=== PATIENT | female | born 1935 ===

== ENCOUNTER 2025-02-10 09:47 | Emergency (ER) | payer MEDICARE, MEDICAID, SELFPAY ==
--- OUTSIDE RECORDS SUMMARY | 2025-01-27 05:15 | XMS_ITS ---
Author Organization [facility] Address [address] [place] [address] Care Team Providers Care Orbitread Operator Name Role Phone NO, PCP Primary Care Provider Ngoc Cervantes Unavailable [phone] REASON FOR VISIT Apply for senior Insurance Social History Sex Assigned At : Social History Observation Description Sex Assigned At Female Encounters Encounter Location Date Provider Diagnosis [facility] [address] [place] [id number] 01/27/2025 Ngoc Cervantes Plan Of Treatment No Information Progress Notes * Denice ARIASDOB:1935 ( 89 yo F)Acc No.[id number]:01/27/2025 Case Management New Patient: Denice POLK Provider: Izabela Cervantes :1935 A ge:89 Y S ex:Female Date:01/27/2025 Address:[address] [place], [place] [id number] Pcp:PCP NO Subjective: * Chief Complaints: * 1 . Apply for senior Insurance. Objective: Assessment: Plan: * Treatment: * Images: Billing Information: * Visit Code: * Procedure Codes: Care Plan Details* * Electronic signature of Mohit Olsen on 02/10/2025 at 12:11 PM EDT Sign off status: Pending * Provider: Izaebla Cervantes Date: 0 01/27/2025 Generated for Chary vega/Brian/Rekha on: 12:11 PM EDT
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
[2025-02-10 09:56] VITALS: BP 156/59; PULSE 63; RESP 18; TEMP 36.4; O2SAT 96; BMI 23.5
--- NOTE | 2025-02-10 10:00 | ECG_ITS ---
Test Reason : CHEST PAIN Blood Pressure : */* mmHG Vent. Rate : 60 BPM Atrial Rate : 60 BPM P-R Int : 176 ms QRS Dur : 74 ms QT Int : 412 ms P-R-T Axes : 35 28 16 degrees QTcB Int : 412 ms Normal sinus rhythm Normal ECG No previous ECGs available Referred By: Generic ED Physician Electronically Signed By: CHAI WEBER
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
[2025-02-10 10:26] VITALS: BP 147/64; PULSE 62; RESP 18; TEMP 36.7; O2SAT 97
[2025-02-10 11:08] LABS: MANUAL DIFF FLAG NO
[2025-02-10 11:13] LABS: Hematocrit 35.7 % (37.0-47.0); Hemoglobin 11.5 g/dl (12.0-16.0); Imm Gran Abs Auto 0.01 X10*3/uL (0.00-0.03); Imm Gran Pct Auto 0.2 % (0.0-0.4); Lymphocytes Absolute Auto 1.7 X10*3/uL (1.2-4.9); Mean Corpuscular HGB Conc 32.2 g/dl (31.0-35.0); Mean Corpuscular Hemoglobin 28.8 pg (27.0-33.0); Mean Corpuscular Volume 89.5 fL (80.0-98.0); NRBC Abs Auto 0.000 X10*3/uL (0.0-0.012); NRBC Pct Auto 0.0 /100WBC (0.0-0.2); Platelet Count 199 X10*3/uL (160-400); Red Blood Count 3.99 X10*6/uL (4.20-5.50); White Blood Count 5.9 X10*3/uL (4.8-10.8)
[2025-02-10 11:17] LABS: INTERNATIONAL NORM RATIO 1.0 (0.9-1.1); Prothrombin Time 11.4 SEC (10.9-12.4)
[2025-02-10 11:24] LABS: Alanine Aminotransferase 9 U/L (0-31); Albumin Level 3.9 g/dL (3.5-5.0); Alkaline Phosphatase 78 U/L (39-117); Anion Gap 8 (12-20); Aspartate Amino Transferase 18 U/L (5-31); Blood Urea Nitrogen 13 mg/dL (9-16); Calcium 9.4 mg/dL (8.4-10.2); Carbon Dioxide 29 mmol/L (22-29); Chloride 112 mmol/L (96-108); Creatinine Clr Calc Pharmacy 35.8; Estimated Glomerular Filt Rate > 60; Potassium 4.0 mmol/L (3.3-5.1); Sodium 145 mmol/L (135-145); Total Protein 6.5 g/dL (6.5-8.0)
[2025-02-10 11:51] LABS: Troponin-I High Sensitivity < 2.7 ng/L (<3.5-17.0)
--- OUTSIDE RECORDS SUMMARY | 2025-02-10 12:12 | XMS_ITS | Patient Health Record ---
Author Organization [facility] Address [address] [place] [address] Care Team Providers Care Ammonia Box Tender Name Role Phone NO, PCP Primary Care Provider [phone] Ngoc Cervantes Unavailable [phone] Reason For Referral No Information Social History Sex Assigned At : Social History Observation Description Sex Assigned At Female Encounters Encounter Location Date Provider Diagnosis [facility] [address] [place] [address] 01/27/2025 Ngoc Cervantes Plan Of Treatment No Information Insurance Providers Payer Name Payer Address Payer Phone Subscriber Number Group Number Insured Name Patient Relationship to Insured Coverage Start Date Coverage End Date [place] Medicare Part A [employer] [address] [place] [address] [id number] Denice Wadsworth Self - patient is the insured 1 Insurance Pending [address] [place] [address] 0 Denice Wadsworth Self - patient is the insured 5
[2025-02-10 12:40] VITALS: BP 141/59; PULSE 57; RESP 16; TEMP 36.6; O2SAT 98
[2025-02-10 13:56] VITALS: BP 141/59; PULSE 57; RESP 16; TEMP 36.6; O2SAT 98
== END 2025-02-10 14:10 | disposition home or self-care (01) ==
PROVIDERS: Physician Assistant Medical; Emergency Provider Emergency Medicine
DX: R07.89 Other chest pain (principal)
CPT/HCPCS: 36415; 71250; 80053; 84484; 85025; 85610; 93005; 99284; 99285

== ENCOUNTER → 2025-02-10 10:00 | Outpatient (BNV) | payer MEDICARE, MEDICAID, SELFPAY | PROVIDERS: Emergency Provider Emergency Medicine; Visit Provider Internal Medicine | DX: R07.2 Precordial pain (principal) | CPT/HCPCS: 93010 ==

== ENCOUNTER → 2025-02-10 10:14 | Outpatient (BNV) | payer MEDICARE, MEDICAID, SELFPAY | PROVIDERS: Visit Provider Radiology Diagnostic Radiology | DX: R07.89 Other chest pain (principal); Y04.2XXA Assault by strike against or bumped into by another person, initial encounter | CPT/HCPCS: 71250 ==

== ENCOUNTER 2025-03-10 07:43 | Emergency (ER) | payer MEDICARE, MEDICAID, SELFPAY ==
--- NOTE | ~2025-03-10 | XR_ITS ---
EXAMINATION: XR ABDOMEN KUB CLINICAL INDICATION: ?constipation COMPARISON: None available. TECHNIQUE: AP view of the abdomen. FINDINGS: Constipation. No dilated loops of bowel to suggest obstruction. No free air. Surgical clips in the right upper quadrant probably from cholecystectomy. Clustered round foreign bodies with lucent center project over the central pelvis, question related to prior surgery or hernia repair with mesh. Degenerative changes of the spine and hips. XR/XR KUB IMPRESSION: Mild constipation. No evidence of obstruction. Electronically signed by: Patricia Priest MD 03/10/2025 09:34 AM EDT
--- NOTE | ~2025-03-10 | CT_ITS ---
EXAMINATION: CT ABDOMEN AND PELVIS WITH CONTRAST CLINICAL INFORMATION: RLQ pain COMPARISON: Radiograph of the abdomen on March 10, 2025 TECHNIQUE: Multidetector volumetric images were obtained from the superior aspect of the liver through the pubic symphysis following administration 85 cc of Omnipaque 350 intravenous contrast. Sagittal and coronal reformatted images were obtained on the technologist's workstation. Oral contrast: No This CT examination was performed using dose optimization techniques as appropriate, variously including the following: *Automated exposure control *Adjustment of mA and/or kV according to patient size (this includes techniques or standardized protocols for targeted exams where dose is matched to indication/reason for exam; i.e. extremities or head) *Use of iterative reconstruction technique FINDINGS: LOWER CHEST: No focal consolidation. No pleural effusion. LIVER: No hepatomegaly. No focal lesions. GALLBLADDER AND BILIARY TREE: Status post cholecystectomy. Mild intrahepatic biliary ductal dilatation. Mildly prominent: bile duct measures up to 0.9 cm in caliber (6:32/74). PANCREAS: Unremarkable. SPLEEN: No splenomegaly. No focal lesions. ADRENAL GLANDS: No nodules. KIDNEYS AND URETERS: Exophytic 5.6 cm lesion in the lower pole of the right kidney measuring fluid density, compatible with a cyst (6:42/74). Small hypodense lesion in the upper pole of the left kidney, too small to be characterize, likely a cyst. No hydronephrosis on either side. GASTROINTESTINAL TRACT: No bowel distention. Numerous diverticula along the colonic loops, without associated inflammatory changes. Normal appendix identified in the right lower quadrant (3:63/91). PERITONEUM/RETROPERITONEUM: Trace free fluid in the pelvis. No free air. ABDOMINAL WALL: No significant hernia is appreciated. LYMPH NODES: No bulky lymphadenopathy. VASCULAR: No abdominal aortic aneurysm. Moderate atherosclerotic disease with calcifications. PELVIC VISCERA: Partially distended urinary bladder. Status post hysterectomy. OSSEOUS STRUCTURES: Multilevel degenerative changes throughout the spine. No acute findings. CT/CT abdomen pelvis w IV con IMPRESSION: 1. No acute findings in the abdomen/pelvis; in particular, no acute findings in the right lower quadrant. 2. Nonspecific trace free fluid in the pelvis. 3. Colonic diverticulosis. Electronically signed by: Leo Tanner MD 03/10/2025 12:50 PM EDT
[2025-03-10 07:55] VITALS: BP 181/84; PULSE 57; RESP 16; TEMP 36.4; O2SAT 99; BMI 22.8
[2025-03-10 08:25] LABS: MANUAL DIFF FLAG NO
--- OUTSIDE RECORDS SUMMARY | 2025-03-10 08:26 | XMS_ITS | Patient Health Record ---
Author Organization [facility] Address [address] [place] [address] Care Team Providers Care Wheel Inspector Name Role Phone NO, PCP Primary Care Provider Ngoc Cervantes Unavailable [phone] Reason For Referral No Information Social History Sex Assigned At : Social History Observation Description Sex Assigned At Female Encounters Encounter Location Date Provider Diagnosis [facility] [address] [place] [address] 01/27/2025 Ngoc Cervantes Plan Of Treatment No Information Insurance Providers Payer Name Payer Address Payer Phone Subscriber Number Group Number Insured Name Patient Relationship to Insured Coverage Start Date Coverage End Date ID Medicare Part A [employer] [address] [facility] [place] [address] [id number] Denice Wadsworth Self - patient is the insured 1 [place] Medicaid Standard [address] [place] [address] [id number] Denice Wadsworth Self - patient is the insured 5
[2025-03-10 08:28] LABS: Hematocrit 37.8 % (37.0-47.0); Hemoglobin 12.3 g/dl (12.0-16.0); Imm Gran Abs Auto 0.03 X10*3/uL (0.00-0.03); Imm Gran Pct Auto 0.5 % (0.0-0.4); Lymphocytes Absolute Auto 2.4 X10*3/uL (1.2-4.9); Mean Corpuscular HGB Conc 32.5 g/dl (31.0-35.0); Mean Corpuscular Hemoglobin 28.9 pg (27.0-33.0); Mean Corpuscular Volume 88.7 fL (80.0-98.0); NRBC Abs Auto 0.000 X10*3/uL (0.0-0.012); NRBC Pct Auto 0.0 /100WBC (0.0-0.2); Platelet Count 224 X10*3/uL (160-400); Red Blood Count 4.26 X10*6/uL (4.20-5.50); White Blood Count 5.8 X10*3/uL (4.8-10.8)
[2025-03-10 08:39] LABS: Anion Gap 11 (12-20); Blood Urea Nitrogen 13 mg/dL (9-16); Calcium 9.8 mg/dL (8.4-10.2); Carbon Dioxide 28 mmol/L (22-29); Chloride 108 mmol/L (96-108); Creatinine Clr Calc Pharmacy 35.3; Estimated Glomerular Filt Rate > 60; Potassium 3.8 mmol/L (3.3-5.1); Sodium 143 mmol/L (135-145)
--- NOTE | 2025-03-10 08:42 | ED.ABDPAIN ---
HPI - Abdominal Pain General Chief Complaint: Abdominal Pain Stated Complaint: abd issues constipation Time Seen by Provider: 03/10/25 08:28 Source: patient and family (son) Mode of arrival: ambulatory Limitations: no limitations History of Present Illness ED Provider: TAMARA HANKS PA-C HPI narrative: 89 year old female presents to the ED today with her son for evaluation of generalized abdominal pain x1 year, worsening over the last month. Associated nausea without vomiting. No urinary sx. Endorses constipation at baseline, typically managed with senna. Passing flatus. Last BM two days ago. Surgical history includes complicated complete hysterectomy requiring 4 additional operations. Her son is at bedside to assist with history. She recently moved to [place] from [place]. She has not established with a PCP. Reports increasing anxiety/life stressors since move. Related Data Previous Rx's ?Medication ?Instructions ?Recorded cefuroxime axetil 250 mg tablet 250 mg PO BID 7 days #14 tabs 03/10/25 Allergies Allergy/AdvReac Type Severity Reaction Status Date / Time No Known Allergies Allergy Verified 03/10/25 07:57 Review of Systems Review of Systems Yes all other systems are reviewed and are negative PMFSH Past Medical History Attestation statement: The following information was validated with the patient. Source: old records reviewed and nursing notes reviewed Physical Exam ED Vital Signs: Vital Signs - 24 hr 03/10/25 07:55 03/10/25 09:14 03/10/25 10:43 Temperature 97.6 F 97.7 F Pulse Rate 57 61 57 Respiratory Rate 16 16 18 Blood Pressure 181/84 H 166/65 H 191/74 H Pulse Oximetry 99 98 Oxygen Delivery Method Room Air Room Air 03/10/25 12:54 03/10/25 14:46 Temperature 97.7 F 97.7 F Pulse Rate 62 62 Respiratory Rate 14 14 Blood Pressure 170/77 H 170/77 H Pulse Oximetry 98 98 Oxygen Delivery Method Room Air Room Air BMI result Body Mass Index 22.8 hypertensive, vitals are otherwise wnl General: Well appearing, in no acute distress. Skin: Warm, dry, intact. No rashes or lesions. Head: Normocephalic, atraumatic. EENT: Hearing is intact b/l. Conjunctiva clear. Sclera is anicteric. PERRLA. EOM intact. Moist mucous membranes.? Cardiac: Chest wall symmetric. RRR Lungs: Normal respiratory effort without accessory muscle use. CTA bilaterally Abdomen: Soft, nondistended, mildly tender to suprapubic region without rebound or guarding. Positive BS x4. no cvat. Back: No midline spinous or paraspinal tenderness. No step off deformity. Ext: Upper and lower extremities atraumatic, without tenderness, deformity, swelling or erythema Neuro: AOx3. Normal speech. Ambulating with steady gait. Course Course Course Narrative: CBC without leukocytosis or left shift. No anemia. H&H stable. Chemistry without acute electrolyte abnormality requiring intervention. No EVELIN. Liver function WNL. CRP undetectable. Her urine is infected. Patient was given an IV dose of ceftriaxone in the ED, plan to discharge patient home with a course of Ceftin for treatment. Her KUB shows mild constipation without evidence of obstruction. CT abdomen/pelvis showing normal appendix. No acute findings. No evidence of bowel obstruction > patient anxious for discharge home. Ceftin sent to pharmacy. Patient has remained stable throughout ED visit today. Discussed worrisome signs and symptoms and when to return to the ED. All questions answered at this time. Patient is agreeable with disposition and stable for discharge. Medical Decision Making Medical Decision Making [facility] Narrative: 89 year old female presents to the ED today with her son for evaluation of generalized abdominal pain x1 year, worsening over the last month. Differential diagnoses: appendicitis, diverticulitis, diverticulosis, UTI, constipation Abdominal exam without peritoneal signs. No evidence of acute abdomen at this time. Well appearing. Low suspicion for acute hepatobiliary disease (including acute cholecystitis), acute infectious processes (pneumonia, hepatitis, pyelonephritis, PID, TOA), vascular catastrophe, bowel obstruction or viscus perforation, ovarian cyst/ rupture/ torsion, ectopic. Presentation not consistent with other acute, emergent causes of abdominal pain at this time. Plan: labs, UA, CT AP, re-eval. Differential Diagnosis Differential Diagnoses: The differential diagnosis associated with the presentation includes As above Admission/Observation Not indicated Lab Data [facility] Lab Attestation statement: I reviewed the patient's lab results. As above 03/10/25 08:14 03/10/25 08:14 Labs: Lab Results 03/10/25 03/10/25 Range/Units 08:14 10:46 WBC 5.8 (4.8-10.8) X10*3/uL RBC 4.26 (4.20-5.50) X10*6/uL Hgb 12.3 (12.0-16.0) g/dl Hct 37.8 (37.0-47.0) % MCV 88.7 (80.0-98.0) fL MCH 28.9 (27.0-33.0) pg MCHC 32.5 (31.0-35.0) g/dl RDW 13.9 (11.0-16.0) % Plt Count 224 (160-400) X10*3/uL MPV 11.1 (9.4-12.3) fL Immature Gran % (Auto) 0.5 H (0.0-0.4) % Neut % (Auto) 49.2 (45-73) % Lymph % (Auto) 40.8 H (20-40) % [place] % (Auto) 7.1 (2-11) % Eos % (Auto) 2.1 (0-4) % Baso % (Auto) 0.3 (0-2) % Lymph # (Auto) 2.4 (1.2-4.9) X10*3/uL [place] # (Auto) 0.4 (0.1-1.2) X10*3/uL Eos # (Auto) 0.1 (0.0-0.4) X10*3/uL Baso # (Auto) 0.0 (0.0-0.2) X10*3/uL Abs Immat Gran (auto) 0.03 (0.00-0.03) X10*3/uL Absolute Neuts (auto) 2.9 (2.0-8.3) x10*3/uL Absolute Nucleated RBC 0.000 (0.0-0.012) X10*3/uL Nucleated RBC % (auto) 0.0 (0.0-0.2) /100WBC Sodium 143 (135-145) mmol/L Potassium 3.8 (3.3-5.1) mmol/L Chloride 108 (96-108) mmol/L Carbon Dioxide 28 (22-29) mmol/L Anion Gap 11 L (12-20) BUN 13 (9-16) mg/dL Creatinine 0.79 (0.5-1.4) mg/dL Estim Creat Clear Calc 35.3 Estimated GFR > 60 Random Glucose 87 (60-115) mg/dL Calcium 9.8 (8.4-10.2) mg/dL Total Bilirubin 0.6 (0.0-1.0) mg/dL Direct Bilirubin 0.2 (0.0-0.5) mg/dL AST 24 (5-31) U/L ALT 11 (0-31) U/L Alkaline Phosphatase 95 (39-117) U/L C-Reactive Protein < 0.10 (< or = 0.50) mg/dL Total Protein 7.5 (6.5-8.0) g/dL Albumin 4.3 (3.5-5.0) g/dL Urine Color Yellow Urine Appearance Clear Urine pH 7.0 (5.0-9.0) Ur Specific [place] <= 1.005 (1.005-1.025) Urine Protein Negative (Neg-Trace) mg/dL Urine Glucose (UA) Negative (Negative) mg/dL Urine Ketones Negative (Negative) mg/dL Urine Blood Negative (Negative) Urine Nitrite Positive H (Negative) Ur Leukocyte Esterase Moderate (2+) H (Negative) Urine RBC 0-2 (0-2) /HPF Urine WBC 11-20 H (0-5) /HPF Ur Squamous Epith Cells 0-2 (0-2) /HPF Urine Bacteria 4+ (None Seen) Hyaline Casts 0-2 (0-2) /LPF Independent Interpretation I performed an independent interpretation of an: Plain X-Ray and CT Scan Interpretation: KUB without bowel obstruction CT a/p without bowel obstruction Radiology Impression Discussion of test interpretation with radiology: I have reviewed the radiologist's reading. Radiologist Impression: Procedure(s): CT abdomen pelvis w IV con Accession Number(s): [id number] cc: Physician,Unknown ; Tamara Hanks~ Report Number: [id number]: Total DLP = 402.00 mGy-cm Reason for Exam: RLQ pain EXAMINATION: CT ABDOMEN AND PELVIS WITH CONTRAST CLINICAL INFORMATION: RLQ pain COMPARISON: Radiograph of the abdomen on March 10, 2025 TECHNIQUE: Multidetector volumetric images were obtained from the superior aspect of the liver through the pubic symphysis following administration 85 cc of Omnipaque 350 intravenous contrast. Sagittal and coronal reformatted images were obtained on the technologist's workstation. Oral contrast: No This CT examination was performed using dose optimization techniques as appropriate, variously including the following: *Automated exposure control *Adjustment of mA and/or kV according to patient size (this includes techniques or standardized protocols for targeted exams where dose is matched to indication/reason for exam; i.e. extremities or head) *Use of iterative reconstruction technique FINDINGS: LOWER CHEST: No focal consolidation. No pleural effusion. LIVER: No hepatomegaly. No focal lesions. GALLBLADDER AND BILIARY TREE: Status post cholecystectomy. Mild intrahepatic biliary ductal dilatation. Mildly prominent: bile duct measures up to 0.9 cm in caliber (6:32/74). PANCREAS: Unremarkable. SPLEEN: No splenomegaly. No focal lesions. ADRENAL GLANDS: No nodules. KIDNEYS AND URETERS: Exophytic 5.6 cm lesion in the lower pole of the right kidney measuring fluid density, compatible with a cyst (6:42/74). Small hypodense lesion in the upper pole of the left kidney, too small to be characterize, likely a cyst. No hydronephrosis on either side. GASTROINTESTINAL TRACT: No bowel distention. Numerous diverticula along the colonic loops, without associated inflammatory changes. Normal appendix identified in the right lower quadrant (3:63/91). PERITONEUM/RETROPERITONEUM: Trace free fluid in the pelvis. No free air. ABDOMINAL WALL: No significant hernia is appreciated. LYMPH NODES: No bulky lymphadenopathy. VASCULAR: No abdominal aortic aneurysm. Moderate atherosclerotic disease with calcifications. PELVIC VISCERA: Partially distended urinary bladder. Status post hysterectomy. OSSEOUS STRUCTURES: Multilevel degenerative changes throughout the spine. No acute findings. CT/CT abdomen pelvis w IV con IMPRESSION: 1. No acute findings in the abdomen/pelvis; in particular, no acute findings in the right lower quadrant. 2. Nonspecific trace free fluid in the pelvis. 3. Colonic diverticulosis. Electronically signed by: Leo Tanner MD 03/10/2025 12:50 PM EDT Procedure(s): XR KUB Accession Number(s): [id number] cc: Physician,Unknown ; Tamara Hanks~ Reason for Exam: ?constipation EXAMINATION: XR ABDOMEN KUB CLINICAL INDICATION: ?constipation COMPARISON: None available. TECHNIQUE: AP view of the abdomen. FINDINGS: Constipation. No dilated loops of bowel to suggest obstruction. No free air. Surgical clips in the right upper quadrant probably from cholecystectomy. Clustered round foreign bodies with lucent center project over the central pelvis, question related to prior surgery or hernia repair with mesh. Degenerative changes of the spine and hips. XR/XR KUB IMPRESSION: Mild constipation. No evidence of obstruction. Electronically signed by: Patricia Priest MD 03/10/2025 09:34 AM EDT RP Independent Historian Clinical information obtained from an independent historian. History obtained from or confirmed by: Other (son) Prescription Management I considered prescription management with: Antibiotic (ceftin) and Other (MiraLax, Colace) Social Determinants Patient?s care significantly limited by Social Determinants of Health including: Other Social Determinant of Health Medications Administered Discontinued Medications Generic Name Dose Route Start Last Admin Trade Name Freq PRN Reason Stop Dose Admin Acetaminophen 1,000 mg in 100 mls @ 400 mls/hr 03/10/25 10:48 03/10/25 12:54 Ofirmev IV 03/10/25 11:02 Infused ONCE ONE Infusion Ceftriaxone Sodium 1 gm/ 50 mls @ 100 mls/hr 03/10/25 11:27 03/10/25 12:54 Sodium Chloride IV 03/10/25 11:56 Infused ONCE ONE Infusion Iohexol 100 ml 03/10/25 12:12 03/10/25 12:13 Iohexol 350 Mg/Ml 100 Ml Infus..Btl IV 03/10/25 12:13 85 ml ONCE ONE Administration Critical Care Time Critical Care Time Critical Care Time: No Discharge Plan Discharge Clinical Impression: Acute UTI Patient Disposition: Home, Self-Care Instructions: Urinary Tract Infection in Older Adults (ED) Additional Instructions: Your urine today is positive for infection. Ceftin is an antibiotic that has been sent to your pharmacy. Take this as prescribed and do not miss any doses. You must complete the entire course of antibiotics. If you do not, there is a risk of the infection coming back or worsening.? Follow up with your primary care provider as needed. If you develop a fever or new/ worsening symptoms call 911 or come back to the ER for further evaluation. Prescriptions: New cefuroxime axetil 250 mg tablet 250 mg PO BID 7 Days Qty: 14 0RF Referrals: Physician,Unknown J [Primary Care Provider, Medical] Interventions: ED Discharge Assessment Last Done: 03/10/25 14:46 Discharge Date/Time: 03/10/25 14:47 Print Language: Luxembourgish
[2025-03-10 09:14] VITALS: BP 166/65; PULSE 61; RESP 16; TEMP 36.5
--- NOTE | 2025-03-10 09:16 | PC.NURSE ---
PAtient presents to ED c/o ABD pain rated 8/10 +bowel sounds, tender in RLQ Patient has been experiencing constipation, last movement yesterday. Patient reports diarrhea Patient awaiting xray and urine sample VSS and up to date Provider in to see patient plan of care on going
[2025-03-10 10:43] VITALS: BP 191/74; PULSE 57; RESP 18; O2SAT 98
[2025-03-10 11:05] LABS: Appearance Urine Clear; Glucose Urine UA Negative (Negative); PH 7.0 (5.0-9.0); Specific Gravity - Urine <= 1.005 (1.005-1.025); UMIC TRIGGER UACC YES
--- NOTE | 2025-03-10 11:06 | MHC.EDTECH ---
attempted to do labs for pt. Family state she had labs drawn done already. Lab was called to check if new orders can be added, trailer technician alexander stated there is enough to do an add on.
[2025-03-10 11:08] LABS: UACC Culture Trigger YES
[2025-03-10 11:20] LABS: Alanine Aminotransferase 11 U/L (0-31); Albumin Level 4.3 g/dL (3.5-5.0); Alkaline Phosphatase 95 U/L (39-117); Aspartate Amino Transferase 24 U/L (5-31); Total Protein 7.5 g/dL (6.5-8.0)
[2025-03-10] MEDS: iohexoL 350 MG/ML 100 ML INFUS..BTL IV (12:13)
[2025-03-10 12:54] VITALS: BP 170/77; PULSE 62; RESP 14; TEMP 36.5; O2SAT 98
[2025-03-10 14:46] VITALS: BP 170/77; PULSE 62; RESP 14; TEMP 36.5; O2SAT 98
== END 2025-03-10 14:47 | disposition home or self-care (01) ==
PROVIDERS: Emergency Provider Emergency Medicine
DX: N39.0 Urinary tract infection, site not specified (principal); R10.31 Right lower quadrant pain; K59.00 Constipation, unspecified; K57.30 Diverticulosis of large intestine without perforation or abscess without bleeding
CPT/HCPCS: 36415; 74018; 74177; 80048; 80076; 81001; 81003; 85025; 86140; 87086; 87088; 87186; 96365; 96375; 99285; J0131; J0696; Q9967

== ENCOUNTER → 2025-03-10 08:30 | Outpatient (BNV) | payer MEDICARE, MEDICAID, SELFPAY | PROVIDERS: Emergency Provider Emergency Medicine; Visit Provider Radiology Diagnostic Radiology | DX: R10.31 Right lower quadrant pain (principal); R11.0 Nausea | CPT/HCPCS: 74018; 74177 ==

== ENCOUNTER 2025-04-05 09:55 | Outpatient (AMB) | payer MEDICARE, MEDICAID, SELFPAY ==
--- NOTE | 2025-04-05 09:59 | A.OFFPC_ITS ---
Vital Signs 04/05/25 10:04 Weight 122 lb BP 130/76 Blood Pressure Location Lt brachial Position Sitting Pulse 59 Pulse Source Pulse Oximeter Temp 97.7 F Temp Source Temporal Artery Scan Pulse Oximetry (%) 98 Oxygen Delivery Method Room Air Intake Visit Reasons: establish care/chest pain Loss Prevention Analyst Required: Yes Loss Prevention Analyst Name: pt son Accompanied by: Son Allergies No Known Allergies Allergy (Verified 04/05/25 09:59) Medication List - Last Reconciled 04/05/25 by Damian Louise MD No Known Home Meds Tobacco use date assessed: 04/05/25 Fall risk assessment: 1 Fall in past year Last assessed Fall Risk: 04/05/25 Dental Screening Dental Screen Date: 04/05/25 Did you have a dental visit in the last 12 months?: Yes Did you have a dental problem in the last 6 months where you did not have access to dental care?: No HPI HPI Comments History of Present Illness Details The patient is a 89 year old F with PMH of OA, constipation, anxiety, acid reflux, dry mouth, difficulty swallowing who is presenting for a new patient visit to establish primary care, accompanied by the patient's son who serves as a plaster model and mold maker. The patient's primary concern is chronic constipation, being unable to have a bowel movement for 2-3 days at a time without using laxatives such as Senna leaf or milk of magnesia. Stools are described as small, hard, and round, and there is concern for fecal impaction. Enemas have provided some relief in the past. The patient also has a history of traveling abdominal discomfort, which is now less frequent and believed to be stress-related. The patient reports significant anxiety, which the son attributes to stress from family problems. The patient reports experiencing auditory hallucinations described as a chirping sound, which began after the of several family members and worsens with increased stress and anxiety. The patient has used the son's clonidine once without adverse reaction and also takes melatonin for sleep and CBD for anxiety. The patient reports extreme dry mouth, acid reflux, and a significant problem with swallowing food, which reportedly worsens with stress. The patient uses lemon and baking soda for reflux symptoms. Past medical history is significant for shingles, which has resulted in residual itching on the feet, legs, and back, for which the patient uses antihistamines as needed. The patient recently completed treatment with antibiotics for an ESBL E. coli urinary tract infection and has residual urinary discomfort, along with baseline urinary incontinence. The patient also has bilateral hand and bilateral knee pain, for which the patient uses topical CBD and THC, which are reported to be helpful. [facility] Family History (Updated 04/05/25 @ 10:11 by Renetta Petersen MA) Mother No problems noted. Father No problems noted. Social History Housing: House Patient Tobacco Use Status: Never used Tobacco e-Cigarette/Vaping Use: Never Used service: No Current occupational status: retired Cognitive needs: No Hearing needs: No Vision needs: Yes (rx glasses) Questionnaire PHQ-9 Over the last 2 weeks, how often have you been bothered by any of the following problems? 1. Little interest or pleasure in doing things: not at all 2. Feeling down, depressed, or hopeless: several days 3. Trouble falling or staying asleep, or sleeping too much: several days 4. Feeling tired or having little energy: several days 5. Poor appetite or overeating: several days 6. Feeling bad about yourself - or that you are a failure or have let yourself or your family down: several days 7. Trouble concentrating on things, such as reading the newspaper or watching television: several days 8. Moving or speaking so slowly that other people could have noticed. Or the opposite - being so fidgety or restless that you have been moving around a lot more than usual: not at all 9. Thoughts that you would be better off or of hurting yourself in some way: not at all Total score: 6 Source: Developed by Drs. Juvenal Mercado, Shauna Solorio, Terry Ortiz and colleagues, with an educational niki from [employer]. Thrive Questionnaire Date Thrive assessed: 04/05/25 I am a: Patient What is your living situation today?: I have a place to live, but I am worried about losing it in the future Within the past 12 months, did the food you bought not last and you didn't have the money to get more?: Sometimes True Within the past 12 months, did you worry whether your food would run out before you got money to buy more?: Sometimes True Do you have trouble paying for medicines?: Yes Do you have trouble getting transportation to medical appointments?: Yes Do you have trouble paying your heating and electricity bill?: Yes Do you have trouble taking care of your child, family member or friend?: I choose not to answer this question Do you have trouble with day-to-day activities such as bathing, preparing meals, shopping, managing finances, etc.?: I choose not to answer this question Are you currently unemployed and looking for a job?: No Are you interested in more education?: I choose not to answer this question Please select the resources that you would like help with: Food, Paying for medicine, Transportation, Utilities, Care for elder or disabled, Daily support and Education Currently or been in a relationship where the following occur: No concerns reported THRIVE Score: 5 AUDIT C Alcohol Use Questionnaire (AUDIT-C) 1. How often do you have a drink containing alcohol?: Never 3. How often do you have six or more drinks on one occasion?: Never Total Score: 0 MATTHEW-7 AMB Questionnaire MATTHEW-7 Date MATTHEW - 7 assessed: 04/05/25 Feeling nervous, anxious, or on edge: 1 = Several days Not being able to stop or control worryin = Several days Worrying too much about different things: 1 = Several days Trouble relaxin = Several days Being so restless that it is hard to sit still: 1 = Several days Becoming easily annoyed or irritable: 1 = Several days Feeling afraid as if something awful might happen: 1 = Several days Total MATTHEW-7 score (0-4 normal; 5-9 mild; 10-14 moderate; 15-21 severe): 7 Source: Developed by Drs. Juvenal Mercado, Shauna Solorio, Terry Ortiz and colleagues, with an educational niki from [employer]. Review of Systems Const Details: Positives besides what was mentioned in HPI are in BOLD Constitutional: No Weight Change, No Fever, No Chills, No Night Sweats, No Fatigue, No Malaise ENT/Mouth: No Hearing Changes, No Ear Pain, No Nasal Congestion, No Sinus Pain, No Hoarseness, No sore throat, No Rhinorrhea, No Swallowing Difficulty Eyes: No Eye Pain, No Swelling, No Redness, No Foreign Body, No Discharge, No Vision Changes Cardiovascular: No Chest Pain, No SOB, No PND, No Dyspnea on Exertion, No Orthopnea, No Claudication, No Edema, No Palpitations Respiratory: No Cough, No Sputum, No Wheezing, No Smoke Exposure, No Dyspnea Gastrointestinal: No Nausea, No Vomiting, No Diarrhea, No Constipation, No Pain, No Heartburn, No Anorexia, No Dysphagia, No Hematochezia, No Melena, No Flatulence, No Jaundice Genitourinary: No Dysmenorrhea, No DUB, No Dyspareunia, No Dysuria, No Urinary Frequency, No Hematuria, No Urinary Incontinence, No Urgency, No Flank Pain, No Urinary Flow Changes, No Hesitancy Musculoskeletal: No Arthralgias, No Myalgias, No Joint Swelling, No Joint Stiffness, No Back Pain, No Neck Pain, No Injury History Skin: No Skin Lesions, No Pruritis, No Hair Changes, No Breast/Skin Changes, No Nipple Discharge Neuro: No Weakness, No Numbness, No Paresthesias, No Loss of Consciousness, No Syncope, No Dizziness, No Headache, No Coordination Changes, No Recent Falls Psych: No Anxiety/Panic, No Depression, No Insomnia, No Personality Changes, No Delusions, No Rumination, No SI/HI/AH/VH, No Social Issues, No Memory Changes, No Violence/Abuse Hx., No Eating Concerns Heme/Lymph: No Bruising, No Bleeding, No Transfusions History, No Lymphadenopathy Endocrine: No Polyuria, No Polydipsia, No Temperature Intolerance Physical exam (Primary Care) Vital Signs: Last Vital Signs Temp 97.7 F 04/05/25 10:04 Pulse 59 04/05/25 10:04 BP 130/76 04/05/25 10:04 Pulse Ox 98 04/05/25 10:04 Oxygen Delivery Method Room Air 04/05/25 10:04 Tobacco/Smoking Status: Tobacco use Status Tobacco use date assessed 04/05/25 04/05/25 10:00 Patient Tobacco Use Status Never used Tobacco 04/05/25 10:00 e-Cigarette/Vaping Use Never Used 04/05/25 10:00 PHQ-9: PHQ-9 Score PHQ-9: Total score 6 04/05/25 10:00 Thrive Assessment: Date of Thrive Assessment Date Thrive assessed 04/05/25 04/05/25 10:02 Currently or been in a relationship where the following occur: No concerns reported Const Other: Pertinent findings are in BOLD GENERAL APPEARANCE NAD, activity normal for age, well developed/ well nourished, no cyanosis, pallor, or diaphoresis. EYES lids/conjunctiva normal. EARS/NOSE/THROAT Mucous membranes moist, nares normal, lips/teeth normal uvula midline without oral pharyngeal erythema, exudate or swelling TMs normal bilaterally. No lymphangitis/lymphedema. HEAD/NECK normocephalic atraumatic, no facial trauma, neck is supple. RESPIRATORY respiratory effort normal, speaks in full sentences, no tripod position, no accessory muscle use. Lungs clear to auscultation without rhonchi, wheezes, rales CARDIAC Regular rate and rhythm, no edema. ABDOMINAL Soft, ND/NT. No evidence of fluid wave. No pulsatile masses on exam, rebound tenderness, Llanes sign or pain over Mcburney's point. MUSCLES/EXTREMITIES No abnormal range of motion, no swelling. SKIN Warm, pink and dry. No rashes, dermatoses, petechiae or lesions. NEUROLOGICAL Speech is clear and appropriate. Normal level of consciousness. Gait and coordination are normal. 5/5 strength in all extremities. PSYCH Normal mood and affect. Judgement/competence is appropriate Coding Level of Care Code New Pt Level 5 (25161) Diagnoses Dry mouth R68.2 Dysphagia, unspecified type R13.10 Dysphagia type: unspecified Gastroesophageal reflux disease, unspecified whether esophagitis present K21.9 Esophagitis presence: esophagitis presence not specified Primary osteoarthritis of both hands M19.041; M19.042 Osteoarthritis location: hand Osteoarthritis type: primary Laterality: bilateral Anxiety F41.9 Constipation, unspecified constipation type K59.00 Constipation type: unspecified constipation type Herpes zoster without complication B02.9 Herpes zoster complications: without complications Time Spent (min) 60 Assessment & Plan Assessment & Plan (1) Dry mouth: Code(s): R68.2 - Dry mouth, unspecified Category: Medical Plan: - Prescribed artificial saliva for symptomatic relief of dry mouth. - Ordered labs including Sjogren's antibodies to investigate underlying causes of xerostomia, although clinical suspicion is low. (2) Dysphagia: Code(s): R13.10 - Dysphagia, unspecified Category: Medical Qualifiers: Dysphagia type: unspecified Qualified Code(s): R13.10 - Dysphagia, unspecified Plan: - Referred the patient to Speech Therapy for a swallowing evaluation to determine appropriate dietary modifications and reduce aspiration risk. (3) GERD (gastroesophageal reflux disease): Code(s): K21.9 - Gastro-esophageal reflux disease without esophagitis Category: Medical Qualifiers: Esophagitis presence: esophagitis presence not specified Qualified Code(s): K21.9 - Gastro-esophageal reflux disease without esophagitis Plan: - Prescribed omeprazole 20 mg daily to be taken 30 minutes before the first meal of the day. - Plan to continue for 30 days and then transition to as-needed use if symptoms improve. - A 90-day supply was provided to ensure continuity of care during the patient's travel to [place]. (4) Osteoarthritis: Code(s): M19.90 - Unspecified osteoarthritis, unspecified site Category: Medical Qualifiers: Osteoarthritis location: hand Osteoarthritis type: primary Laterality: bilateral Qualified Code(s): M19.041 - Primary osteoarthritis, right hand; M19.042 - Primary osteoarthritis, left hand Plan: - Prescribed topical Voltaren gel for joint pain. - Advised against the use of ibuprofen due to the patient's history of acid reflux. (5) Anxiety: Code(s): F41.9 - Anxiety disorder, unspecified Category: Medical Plan: - Strongly recommended therapy as the best approach for anxiety, especially given the patient's age and potential medication side effects. - Prescribed hydroxyzine as needed, to be taken at night, to help with both anxiety and itching, with caution advised due to its sedative effect. - The patient's auditory hallucinations are noted and thought to be related to underlying stress and anxiety. (6) Constipation: Code(s): K59.00 - Constipation, unspecified Category: Medical Qualifiers: Constipation type: unspecified constipation type Qualified Code(s): K59.00 - Constipation, unspecified Plan: - Prescribed MiraLax and Senna to be taken together on a daily scheduled basis rather than as needed. - Advised to hold the medications for 1-2 days if the patient experiences severe diarrhea (more than two bowel movements per day) and then resume. - Emphasized the importance of maintaining adequate fluid intake to prevent dehydration. - Colonoscopy was deferred as it is not the ideal diagnostic tool for constipation, favoring symptomatic treatment instead. (7) Shingles: Code(s): B02.9 - Zoster without complications Category: Medical Qualifiers: Herpes zoster complications: without complications Qualified Code(s): B02.9 - Zoster without complications Plan: Patient had previous episodes of shingles. Advised the patient to get Shingles vaccine from retail pharmacy. Plan I conducted a comprehensive new patient evaluation with the patient and the patient's son, who provided translation and most of the history. We discussed the management of chronic constipation, and I prescribed a daily regimen of MiraLax and Senna, explaining that this scheduled approach is more effective than as-needed use, and reviewed reasons to hold the medication. Regarding the patient's anxiety, I emphasized that therapy is the preferred first-line treatment due to the patient's age. For symptomatic relief, I prescribed hydroxyzine, counseling on its sedative effects and the need to take it at night to prevent falls. To address the dysphagia and xerostomia, I placed a referral for a speech therapy evaluation and ordered Sjogren's antibody testing, while also presc ribing artificial saliva for comfort. I also addressed the patient's acid reflux by prescribing a 90-day supply of omeprazole to be taken before the first meal. For health maintenance, we discussed vaccinations, with a strong recommendation for the Shingrix vaccine due to the history of shingles, and noted the patient's declination of the flu vaccine. I ordered baseline labs and established a plan to follow up in 6 months. All prescriptions were sent to the patient's preferred pharmacy. Orders: Orders Complete Blood Count no Diff Today F41.9 - Anxiety disorder, unspecified, K59.00 - Constipation, unspecified, R32 - Unspecified urinary incontinence, Z00.00 - Encounter for general adult medical examination without abnormal findings Hepatitis C Antibody Reflex Today F41.9 - Anxiety disorder, unspecified, K59.00 - Constipation, unspecified, R32 - Unspecified urinary incontinence, Z00.00 - Encounter for general adult medical examination without abnormal findings HIV Ab/Ag Today F41.9 - Anxiety disorder, unspecified, K59.00 - Constipation, unspecified, R32 - Unspecified urinary incontinence, Z00.00 - Encounter for general adult medical examination without abnormal findings Lipid Panel Today F41.9 - Anxiety disorder, unspecified, K59.00 - Constipation, unspecified, R32 - Unspecified urinary incontinence, Z00.00 - Encounter for general adult medical examination without abnormal findings Vitamin B12 and Folate Today D64.9 - Anemia, unspecified, F41.9 - Anxiety disorder, unspecified, K59.00 - Constipation, unspecified, R32 - Unspecified urinary incontinence, Z00.00 - Encounter for general adult medical examination without abnormal findings Comprehensive Met. Panel Today F41.9 - Anxiety disorder, unspecified, K59.00 - Constipation, unspecified, R32 - Unspecified urinary incontinence, Z00.00 - Encounter for general adult medical examination without abnormal findings TSH reflex Free T4 Today F41.9 - Anxiety disorder, unspecified, K59.00 - Constipation, unspecified, R32 - Unspecified urinary incontinence, Z00.00 - Encounter for general adult medical examination without abnormal findings Vitamin D 25-OH Total Today F41.9 - Anxiety disorder, unspecified, K59.00 - Constipation, unspecified, R32 - Unspecified urinary incontinence, Z00.00 - Encounter for general adult medical examination without abnormal findings Hemoglobin A1c Today F41.9 - Anxiety disorder, unspecified, K59.00 - Constipation, unspecified, R32 - Unspecified urinary incontinence, Z00.00 - Encounter for general adult medical examination without abnormal findings UA and rflx microscopic Today Z00.00 - Encounter for general adult medical examination without abnormal findings Sjogren's Antibodies Today R68.2 - Dry mouth, unspecified Referrals Speech and Hearing Referral R13.10 - Dysphagia, unspecified Medications: New polyethylene glycol 3350 (Miralax) 17 grams PO DAILY PRN 238 grams 3RF constipation sennosides (senna) 8.6 mg PO DAILY PRN 30 caps 3RF constipation artificial saliva (cmce-lytes) 1 spray mucous membrane QID PRN 120 mL 3RF dry mouth omeprazole 20 mg PO DAILY 30 caps 3RF omeprazole 20 mg PO DAILY 120 caps 3RF hydroxyzine HCl 10 mg PO BEDTIME 30 tabs 3RF diclofenac sodium 1% (Voltaren Arthritis Pain) apply to single elbow, wrist or hand; for hand includes palm/fingers/back of hand 2 grams topical QID 100 grams 3RF Discontinued nitrofurantoin monohyd/m-cryst 100 mg (Macrobid) must administer with a meal/food Discontinued Reason: Patient no longer taking 100 mg PO Q12H 5 days 10 caps 0RF cefuroxime axetil Discontinued Reason: Patient no longer taking 250 mg PO BID 7 days 14 tabs 0RF
[2025-04-05 10:04] VITALS: BP 130/76; PULSE 59; TEMP 36.5; O2SAT 98
--- OUTSIDE RECORDS SUMMARY | 2025-04-05 11:51 | XMS_ITS | Patient Health Record ---
Author Organization [facility] Address [address] [place] [address] Care Team Providers Care Remote Medical Coder Name Role Phone NO, PCP Primary Care Provider Ngoc Cervantes Unavailable [phone] Reason For Referral No Information Social History Sex Assigned At : Social History Observation Description Sex Assigned At Female Encounters Encounter Location Date Provider Diagnosis [facility] [address] [place] [address] 01/27/2025 Ngoc Cervantes Plan Of Treatment No Information Insurance Providers Payer Name Payer Address Payer Phone Subscriber Number Group Number Insured Name Patient Relationship to Insured Coverage Start Date Coverage End Date [place] Medicare Part [place] [employer] [address] [place] [address] [id number] Denice Wadsworth Self - patient is the insured 1 [place] Medicaid Standard [address] [place] [address] [id number] Denice Wadsworth Self - patient is the insured 5
== END 2025-04-05 11:01 | disposition home or self-care (01) ==
LOC: HO.HMCH 09:56
PROVIDERS: PCP Internal Medicine; Visit Provider Internal Medicine
DX: R68.2 Dry mouth, unspecified (principal); R13.10 Dysphagia, unspecified; K21.9 Gastro-esophageal reflux disease without esophagitis; M19.041 Primary osteoarthritis, right hand; M19.042 Primary osteoarthritis, left hand; F41.9 Anxiety disorder, unspecified; K59.00 Constipation, unspecified; B02.9 Zoster without complications

== ENCOUNTER → 2025-04-05 09:55 | Outpatient (BNVA) | payer MEDICARE, MEDICAID, SELFPAY | PROVIDERS: Visit Provider Internal Medicine | DX: K21.9 Gastro-esophageal reflux disease without esophagitis (principal); R13.10 Dysphagia, unspecified; R68.2 Dry mouth, unspecified; M19.042 Primary osteoarthritis, left hand; M19.041 Primary osteoarthritis, right hand; F41.9 Anxiety disorder, unspecified; K59.00 Constipation, unspecified; B02.9 Zoster without complications; Z13.31 Encounter for screening for depression; Z13.39 Encounter for screening examination for other mental health and behavioral disorders | CPT/HCPCS: 96127; 99202 ==